=== PATIENT | male | born 1990 | race American Indian/Alaskan Native ===

== ENCOUNTER 2016-06-15 18:05 | Emergency (ER) | payer MEDICAID ==
[2016-06-15 18:44] VITALS: BP 122/78
[2016-06-15 19:19] LABS: Bilirubin,Urine NEG (Negative); Blood,Urine NEG (Negative); Ketones,Urine TR mg/dL (Negative); Leukocyte Esterase,Urine NEG (Negative); Mucus,Urine 1+ /HPF; Nitrite,Urine NEG (Negative); Protein,Urine <15 mg/dL mg/dL (Negative); Urobilinogen,Urine < 2.0 mg/dL (<2.0)
== END 2016-06-15 20:25 | disposition left against medical advice (07) ==
LOC: ED 18:05
DX: R10.9 Unspecified abdominal pain (principal); R51 Headache; Z53.21 Procedure and treatment not carried out due to patient leaving prior to being seen by health care provider
CPT/HCPCS: 81001

== ENCOUNTER 2016-06-16 15:30 | Emergency (ER) | payer MEDICAID ==
[2016-06-16 15:50] VITALS: BP 119/76
[2016-06-16] MEDS ORDERED: BSS 1 DROPS, TETRACAINE 0.5% 1 DROPS, FUL-GLO 1 MG OS ONE (17:04)
[2016-06-16] MEDS ORDERED: TETRACAINE 0.5% ONE (17:12)
[2016-06-16] MEDS ORDERED: FUL-GLO OP ONE (17:12)
[2016-06-16] MEDS ORDERED: BSS ONE (17:12)
--- NOTE | 2016-06-16 17:44 | Emergency Department Report ---
Chief Complaint: Eye Problems Stated Complaint: LT EYE REDNESS Time Seen by Provider: 06/16/16 17:03 - HPI History of Present Illness: Patient states he's here to get his Left eye checked out. c/o left eye pain x couple of days. States it feels like there's something in the eye. He denies employment, known exposure, eye trauma. States he has an eye Dr. and just wanted to get checked out. He denies change or blurring of his vision, drainage or discharge from eye, redness, swelling. Patient smells heavily of weed and is a poor historian. - Exam Vital Signs: Vital Signs 06/16/16 15:41 Temperature 97.6 F Pulse Rate 95 H Respiratory 16 Rate Blood Pressure 119/76 O2 Sat by Pulse 97 Oximetry Physical Exam: General: NAD. head: Normocephalic, atraumatic. Eye: PERRL. EOMI. Absent red reflex in right eye. Red reflex preserved in L. R eye cataract on fundoscopic exam. Normal fundoscopic exam in L eye. No foreign body on b/l upper lid evertion, lower lid retraction. + Flouroscein pick up attendant in L eye on hurst' lamp. MSE screening note: Focused history and physical exam performed. Due to findings the following was ordered: ED Medical Decision Making - Medical Decision Making 26 YOM presented with L eye pain. Patient states he is leaving after Wood's lamp exam. Provider could not convince him to stay for visual acuity testing. Patient states he has an eye doctor and would follow up with him. he is aware of the importance of further eval/examination of his eye giving the cataract in right eye and flouroscein pick up attendant in L. He verbalized understanding and is agreeable to plan. Patient walked out before he could be presented with the AMA form. - Differential Diagnosis cataract, cornea abrasion. ED Disposition for MSE Clinical Impression: Left eye pain, Cataract, right eye Disposition: LEFT AGAINST MEDICAL ADVICE Is pt being admited?: No Does the pt Need Aspirin: No Condition: Stable Instructions: Eye Pain (ED) Additional Instructions: Follow up immediately wit your eye doctor. Return to ED for new or worsening condition. Referrals: PRIMARY CAREMD [Primary Care Provider] - 06/17/16 Forms: AMA Form
== END 2016-06-16 17:51 | disposition left against medical advice (07) ==
LOC: ED 15:30
DX: H57.12 Ocular pain, left eye (principal); H26.9 Unspecified cataract
CPT/HCPCS: 99282

== ENCOUNTER 2016-09-03 00:54 | Emergency (ER) | payer MEDICAID ==
[2016-09-03] MEDS ORDERED: MOTRIN PO ONE (04:32)
[2016-09-03] MEDS ORDERED: AUGMENTIN 875 MG PO ONE (04:32)
--- NOTE | 2016-09-03 04:37 | Emergency Department Report ---
ED ENT HPI - General Chief complaint: Dental/Oral Stated complaint: EYE PSIN, TOOTH ACHE Time Seen by Provider: 09/03/16 04:17 Source: patient Mode of arrival: Ambulatory Limitations: No Limitations - History of Present Illness MD complaint: tooth pain Onset/Timin -: days(s) Location: tooth # (30, 32) Severity scale (0 -10): 6 Quality: aching Consistency: intermittent Worsens with: eating Context- Dental: history of dental caries, poor dental care Associated Symptoms: gum swelling, toothache - Related Data Previous Rx's Medication Instructions Recorded Last Taken Type Acetaminophen/Codeine [Tylenol 1 tab PO Q6H PRN #12 tab 09/03/16 Unknown Rx /Codeine # 3 tab] Amoxicillin/K Clav Tab [Augmentin 1 tab PO Q12HR #20 tab 09/03/16 Unknown Rx 875 mg] Chlorhexidine Mouthwash [Peridex] 118 ml MM BID #1 bottle 09/03/16 Unknown Rx Ibuprofen [Motrin] 600 mg PO Q8H PRN #30 tablet 09/03/16 Unknown Rx Allergies Allergy/AdvReac Type Severity Reaction Status Date / Time No Known Allergies Allergy Unverified 06/15/16 18:40 ED Dental HPI - General Chief complaint: Dental/Oral Stated complaint: EYE PSIN, TOOTH ACHE Time Seen by Provider: 09/03/16 04:17 Source: patient Mode of arrival: Ambulatory Limitations: No Limitations - Related Data Previous Rx's Medication Instructions Recorded Last Taken Type Acetaminophen/Codeine [Tylenol 1 tab PO Q6H PRN #12 tab 09/03/16 Unknown Rx /Codeine # 3 tab] Amoxicillin/K Clav Tab [Augmentin 1 tab PO Q12HR #20 tab 09/03/16 Unknown Rx 875 mg] Chlorhexidine Mouthwash [Peridex] 118 ml MM BID #1 bottle 09/03/16 Unknown Rx Ibuprofen [Motrin] 600 mg PO Q8H PRN #30 tablet 09/03/16 Unknown Rx Allergies Allergy/AdvReac Type Severity Reaction Status Date / Time No Known Allergies Allergy Unverified 06/15/16 18:40 ED Review of Systems ROS: Stated complaint: EYE PSIN, TOOTH ACHE Other details as noted in HPI Constitutional: denies: chills, fever Eyes: denies: eye pain, eye discharge, vision change ENT: dental pain. denies: ear pain Respiratory: denies: cough, shortness of breath, wheezing Cardiovascular: denies: chest pain, palpitations Endocrine: no symptoms reported Gastrointestinal: denies: abdominal pain, nausea, diarrhea Genitourinary: denies: urgency, dysuria Musculoskeletal: denies: back pain, joint swelling, arthralgia Skin: denies: rash, lesions Neurological: denies: headache, weakness, paresthesias Psychiatric: denies: anxiety, depression Hematological/Lymphatic: denies: easy bleeding, easy bruising ED Past Medical Hx - Past Medical History Hx Psychiatric Treatment: Yes (bipolar) Hx HIV: Yes - Surgical History Additional Surgical History: throat rigth hand - Social History Smoking Status: Current Every Day Smoker Substance Use Type: None - Medications Home Medications: Home Medications Medication Instructions Recorded Confirmed Last Taken Type Acetaminophen/Codeine [Tylenol 1 tab PO Q6H PRN #12 tab 09/03/16 Unknown Rx /Codeine # 3 tab] Amoxicillin/K Clav Tab [Augmentin 1 tab PO Q12HR #20 tab 09/03/16 Unknown Rx 875 mg] Chlorhexidine Mouthwash [Peridex] 118 ml MM BID #1 bottle 09/03/16 Unknown Rx Ibuprofen [Motrin] 600 mg PO Q8H PRN #30 tablet 09/03/16 Unknown Rx ED Physical Exam - General Limitations: No Limitations General appearance: alert, in no apparent distress - Head Head exam: Present: atraumatic, normocephalic - Eye Eye exam: Present: normal appearance, PERRL, EOMI - ENT ENT exam: Present: mucous membranes moist - Expanded ENT Exam Expanded Mouth exam: Present: normal external inspection, other (no QUILL REAMER, no ludwigs angina, no induration innfloor of mouth) Teeth exam: Present: dental caries (30,32) 1 - Other (multiple cavities) - Neck Neck exam: Present: normal inspection, full ROM - Respiratory Respiratory exam: Present: normal lung sounds bilaterally. Absent: respiratory distress - Cardiovascular Cardiovascular Exam: Present: regular rate, normal rhythm. Absent: systolic murmur, diastolic murmur, rubs, gallop - GI/Abdominal GI/Abdominal exam: Present: soft, normal bowel sounds - Rectal Rectal exam: Present: deferred - Extremities Exam Extremities exam: Present: normal inspection, full ROM - Back Exam Back exam: Present: normal inspection - Neurological Exam Neurological exam: Present: alert, oriented X3 - Psychiatric Psychiatric exam: Present: normal affect, normal mood - Skin Skin exam: Present: warm, dry, intact, normal color. Absent: rash ED Course Vital Signs 09/03/16 01:01 Temperature 98 F Pulse Rate 80 Respiratory 16 Rate Blood Pressure 127/84 Blood Pressure 127/84 [Left] O2 Sat by Pulse 100 Oximetry ED Medical Decision Making - Medical Decision Making A/P: Dental caries 1-Motrin, Tylenol 3, Augmentin 1 week, Peridex mouthwash 2-patient advised to follow up as soon as possible for dental cavity. No overt abscess along gumline or peritonsillar region. I advised patient that lack of follow-up and untreated dental cavity can result in infection to come his face and jaw and if left untreated can progress to sepsis and become lethal. Patient understood these instructions and agreed to follow-up on outpatient basis with dentist as soon as possible. 3-advised to return to ED [facility] for any significant bleeding pus drainage from oral cavity inability to tolerate by mouth, dyspnea shortness of breath muffled voice and/or stridor Critical care attestation.: If time is entered above; I have spent that time in minutes in the direct care of this critically ill patient, excluding procedure time. ED Disposition Clinical Impression: Dental abscess Disposition: DISCHARGED TO HOME OR SELFCARE Is pt being admited?: No Does the pt Need Aspirin: No Condition: Stable Instructions: Dental Caries (ED), Toothache (ED) Prescriptions: Acetaminophen/Codeine [Tylenol /Codeine # 3 tab] 1 tab PO Q6H PRN #12 tab PRN Reason: Pain Amoxicillin/K Clav Tab [Augmentin 875 mg] 1 tab PO Q12HR #20 tab Chlorhexidine Mouthwash [Peridex] 118 ml MM BID #1 bottle Ibuprofen [Motrin] 600 mg PO Q8H PRN #30 tablet PRN Reason: Pain Referrals: [facility] [Outside] - 3-5 Days Time of Disposition: 04:36
[2016-09-03 04:46] VITALS: BP 124/79
== END 2016-09-03 06:34 | disposition home or self-care (01) ==
LOC: ED 00:54
DX: K04.7 Periapical abscess without sinus (principal); F31.9 Bipolar disorder, unspecified; F17.200 Nicotine dependence, unspecified, uncomplicated; Z21 Asymptomatic human immunodeficiency virus [HIV] infection status
CPT/HCPCS: 99282

== ENCOUNTER 2016-09-09 19:01 | Emergency (ER) | payer MEDICAID ==
[2016-09-09 21:46] VITALS: BP 118/75
--- NOTE | 2016-09-09 22:04 | Emergency Department Report ---
HPI - General Chief Complaint: Skin/Abscess/Foreign Body Time Seen by Provider: 09/09/16 21:24 - HPI HPI: 26-year-old male presents today with a possible abscess to his right chest 3 days. Patient is concerned about breast cancer. He denies pain at rest. Positive for tenderness to touch. Denies history of abscesses. Positive for minimal pruritus. Denies any drainage or bleeding from the site or any nipple drainage or bleeding. Denies fever, chills, nausea, vomiting, chest pain, shortness of breath, abdominal pain. ED Past Medical Hx - Past Medical History Hx Psychiatric Treatment: Yes (bipolar) Hx HIV: Yes - Surgical History Additional Surgical History: throat rigth hand - Social History Smoking Status: Never Smoker Substance Use Type: None - Medications Home Medications: Home Medications Medication Instructions Recorded Confirmed Last Taken Type Acetaminophen/Codeine [Tylenol 1 tab PO Q6H PRN #12 tab 09/03/16 09/09/16 Unknown Rx /Codeine # 3 tab] Amoxicillin/K Clav Tab [Augmentin 1 tab PO Q12HR #20 tab 09/03/16 09/09/16 Unknown Rx 875 mg] Chlorhexidine Mouthwash [Peridex] 118 ml MM BID #1 bottle 09/03/16 09/09/16 Unknown Rx Ibuprofen [Motrin] 600 mg PO Q8H PRN #30 tablet 09/03/16 09/09/16 Unknown Rx Cephalexin [Keflex] 500 mg PO Q6HR #20 capsule 09/09/16 Unknown Rx ED Review of Systems ROS: Stated complaint: CHEST PAIN Other details as noted in HPI Constitutional: denies: chills, fever, malaise Eyes: denies: eye pain ENT: denies: ear pain, throat pain, congestion Respiratory: denies: cough, shortness of breath, wheezing Cardiovascular: denies: chest pain, palpitations Endocrine: no symptoms reported Gastrointestinal: denies: abdominal pain, nausea, vomiting Neurological: denies: headache, weakness Physical Exam - Physical Exam Vital Signs: Vital Signs 09/09/16 09/09/16 19:14 21:43 Temperature 98.3 F Pulse Rate 85 66 Respiratory 18 18 Rate Blood Pressure 140/83 Blood Pressure 118/75 [Left] O2 Sat by Pulse 100 98 Oximetry Physical Exam: GENERAL: The patient is well-developed and well-nourished. Patient is in NAD. SKIN: 0.5cm erythematous, blanching, mildly tender to touch, slightly indurated , non-fluctuant lesion noted to the right of sternum. No drainage or bleeding. HEAD: Normocephalic. Atraumatic. NECK: Supple, nontender, without lymphadenopathy. No meningitic signs are noted. CHEST/LUNGS: Clear to auscultation throughout. HEART/CARDIOVASCULAR: Regular rate and rhythm. No murmurs, rubs or gallops. ABDOMEN: Abdomen is soft, nontender. Bowel sounds normoactive. No guarding or rebound tenderness. EXTREMITIES: Peripheral pulses intact. Capillary refill less than 2 seconds. NEURO: Alert and oriented x 3. Normal gait. ED Course Vital Signs 09/09/16 09/09/16 19:14 21:43 Temperature 98.3 F Pulse Rate 85 66 Respiratory 18 18 Rate Blood Pressure 140/83 Blood Pressure 118/75 [Left] O2 Sat by Pulse 100 98 Oximetry ED Medical Decision Making - Lab Data Vital Signs 09/09/16 09/09/16 19:14 21:43 Temperature 98.3 F Pulse Rate 85 66 Respiratory 18 18 Rate Blood Pressure 140/83 Blood Pressure 118/75 [Left] O2 Sat by Pulse 100 98 Oximetry - Medical Decision Making 26-year-old male presents today complaining of what appears to be an insect bite. Patient is in no acute distress at this time. He will be discharged home and is encouraged to follow up with a primary care provider. He will be sent home on Keflex and is encouraged to return to the emergency room for any worsening symptoms. Critical care attestation.: If time is entered above; I have spent that time in minutes in the direct care of this critically ill patient, excluding procedure time. ED Disposition Clinical Impression: Insect bite Qualifiers: Encounter type: initial encounter Qualified Code(s): W57.XXXA - Bitten or stung by nonvenomous insect and other nonvenomous arthropods, initial encounter Disposition: DISCHARGED TO HOME OR SELFCARE Is pt being admited?: No Does the pt Need Aspirin: No Condition: Stable Instructions: Insect Bite or Sting (ED), Abscess (ED) Additional Instructions: Follow-up with primary care provider. Return to the emergency department if symptoms worsen. Prescriptions: Cephalexin [Keflex] 500 mg PO Q6HR #20 capsule Referrals: PRIMARY CARE, [Primary Care Provider] - 3-5 Days [facility] [Outside] - 3-5 Days Forms: Work/School Release Form(ED) Time of Disposition: 22:05
== END 2016-09-09 22:12 | disposition home or self-care (01) ==
LOC: ED 19:01
DX: S20.369A Insect bite (nonvenomous) of unspecified front wall of thorax, initial encounter (principal); W57.XXXA Bitten or stung by nonvenomous insect and other nonvenomous arthropods, initial encounter; Y93.9 Activity, unspecified; Y99.9 Unspecified external cause status; Y92.89 Other specified places as the place of occurrence of the external cause; Z21 Asymptomatic human immunodeficiency virus [HIV] infection status
CPT/HCPCS: 93005; 93010; 99282